=== PATIENT | male | born 1990 | race Caucasian/White ===

== ENCOUNTER 2018-03-25 06:28 | Emergency (ER) | payer OTHER ==
[~2018-03-25] VITALS: Ht 170.2 cm; Wt 74.8 kg
[2018-03-25] MEDS ORDERED: AMOXICILLIN 50500 MG PO (07:50)
[2018-03-25] MEDS ORDERED: NORCO 5-325 TA1 EACH PO (07:50)
[2018-03-25 08:21] VITALS: BP 144/79
== END 2018-03-25 08:22 | disposition home or self-care (01) ==
LOC: M.ERS 06:28
DX: K04.7 Periapical abscess without sinus (principal)